=== PATIENT | female | born 1945 | race Caucasian/White ===

== ENCOUNTER 2018-04-09 09:24 | Observation (INO) | payer MEDICARE ==
[2018-04-09 10:00] LABS: #Eosinphils 0.1 thou/uL (0.0-0.7); #Lymphocytes 1.2 thou/uL (1.20-3.40); #Monocytes 1.1 thou/uL (0.11-0.59); #Neutrophils 12.1 thou/uL (1.40-6.50); %Basophils 0.2 % (0.0-1.0); %Eosinophils 0.6 % (0.0-10.0); %Lymphocytes 7.9 % (21.0-51.0); %Monocytes 7.6 % (0.0-10.0); %Neutrophils 83.7 % (42.0-75.0); Hemoglobin 14.7 g/dL (12.0-16.0); Mean Corpuscular HGB CONC 31.8 g/dL (32.0-36.0); Mean Platelet Volume 7.8 fL (7.4-10.4); Platelet Count 301 thou/uL (130-400); RBC Distribution Width 12.3 % (11.5-14.5); White Blood Cell (WBC) Count 14.5 thou/uL (4.8-10.8)
[2018-04-09] MEDS ORDERED: Mag-Al 1200 mg/1200 mg/30 ML UDCUP ONE (10:00)
[2018-04-09] MEDS ORDERED: Lidocaine Viscous Sol 2% 15 ml UD Cup ONE (10:00)
--- NOTE | 2018-04-09 10:07 | RAD ---
SINGLE VIEW CHEST: Date: 04/09/18 COMPARISON: 12/13/08. HISTORY: Mid sternal chest pain. FINDINGS: Single view of the chest shows normal sized cardiomediastinal silhouette. There is no evidence of con solidation, mass, or pleural effusion. Surgical changes are seen in both shoulders. IMPRESSION: No evidence of acute cardiopulmonary disease. POS: [facility]
[2018-04-09 10:14] LABS: ALT (SGPT) 26 U/L (8-55); AST (SGOT) 27 U/L (5-34); Albumin 4.8 g/dL (3.4-4.8); Alkaline Phosphatase 92 U/L (40-150); Anion Gap 13 mmol/L (10-20); BUN (Urea Nitrogen) 14 mg/dL (9.8-20.1); Bilirubin, Total 1.2 mg/dL (0.2-1.2); CK (CPK) 84 U/L (29-168); Calc. Creatinine Clearance 0 mL/min (70-130); Calcium 10.7 mg/dL (7.8-10.44); Carbon Dioxide 28 mmol/L (23-31); Chloride 99 mmol/L (98-107); Estimated GFR-MDRD 80; Globulin 3.2 g/dL (2.4-3.5); Glucose 134 mg/dL (83-110); Lipase 20 U/L (8-78); Sodium 136 mmol/L (136-145)
[2018-04-09] MEDS ORDERED: Morphine 2 MG/ML SYRINGE ONE (10:31)
[2018-04-09] MEDS ORDERED: Ondansetron PF 4 MG/2 ML Vial ONE (10:36)
[2018-04-09] MEDS ORDERED: Nitroglycerin 0.4 MG TAB (25 Tab Bottle) ONE (11:17)
[2018-04-09 14:01] LABS: Troponin I Less than 0.010 ng/mL (< 0.028)
[2018-04-09] MEDS ORDERED: Acetaminophen 325 MG TAB PO PRN (15:40)
[2018-04-09] MEDS ORDERED: Ondansetron PF 4 MG/2 ML Vial IVP PRN (15:40)
[2018-04-09] MEDS ORDERED: Ondansetron ODT 4 MG TAB SL PRN (15:40)
[2018-04-09 16:18] LABS: Troponin I Less than 0.010 ng/mL (< 0.028)
[2018-04-09] MEDS ORDERED: Sodium Chloride 0.9% 1,000 ML IV SCH (17:00)
[2018-04-09 17:09] VITALS: BMI 30.2
[2018-04-09] MEDS ORDERED: Calcium Carbonate 500 MG ChewTAB PO PRN (17:31)
[2018-04-09] MEDS: Sodium Chloride 0.9% 1,000 ML IV SCH (18:03)
[2018-04-09] MEDS ORDERED: SUMAtriptan Succinate 25 MG TAB PO SCH (19:00)
[2018-04-09] MEDS: Pantoprazole 40 MG VIAL IVP SCH (19:53)
--- NOTE | 2018-04-10 01:01 | HP ---
PRIMARY CARE PHYSICIAN: Dr. Anusha Brownlee. CODE STATUS: Full code. CHIEF COMPLAINT: Epigastric pain. HISTORY OF PRESENT ILLNESS: Ms. Preston is a pleasant 72-year-old female who had presented to [facility] with epigastric pain since yesterday, she states she has a past medical history of pancreatitis, hypertension, hyperlipidemia, asthma, and GERD. She states that the pain came on suddenly yesterday, which seems to be intermittent throughout the day that is worse with meals. She states when she was having the pain, she felt nauseous; however, denies any vomiting or diarrhea. She denies fever or chills. She states she did get mildly diaphoretic and dizzy; however, this lasted for just a few seconds and this resolved. Since then, she denies all those further symptoms. Upon coming to the ER, she was given a GI cocktail, which she states seemed to improve her symptoms. She states she usually takes Protonix once daily at home; however, has noticed a little improvement over the last 24 hours. She states she has taken her home medication of Phenergan, which seemed to improve her nausea. She also has taken her home dose of [place], which seemed to help with her pain. She states in the last two years, she had a normal stress test along with a normal EGD and colonoscopy. Her initial lab work showed a lipase of 20, she states that this pain that she is having feels more like her reflux more than a flare-up of her pancreatitis. Her initial troponins were found to be less than 0.010 x3. Her WBC was found to be elevated at 14.5; however, she denies any cough, shortness of breath, or any other symptoms that would represent an infectious cause. She states over the last two weeks, she was recently treated for sinusitis with an antibiotic; however, she could not tell me the name of this antibiotic. She states her symptoms of sinus pressure and drainage have since resolved. Due to the patient's symptoms, it was determined that she would be admitted overnight for observation and monitoring of her epigastric pain. PAST MEDICAL HISTORY: Hypertension, GERD, pancreatitis, asthma, and arthritis. PAST SURGICAL HISTORY: Back surgery back in 2013, right shoulder scope, left reverse shoulder replacement, left-sided jaw surgery, bilateral knee surgery, cholecystectomy, hysterectomy, and pancreatic duct surgery to relieve obstruction. PSYCHIATRIC HISTORY: Denies any psychiatric history at this time; however, does report taking alprazolam as needed for anxiety and amitriptyline 10 mg p.o. at bedtime as needed. SOCIAL HISTORY: Denies alcohol use, drug use, or tobacco use. FAMILY HISTORY: Not significant for heart disease at this time. KNOWN ALLERGIES: Colchicine, Lyrica, omeprazole, and ranitidine. CURRENT MEDICATIONS: 1. Promethazine 25 mg p.o. q.6 hours as needed for nausea. 2. Oxybutynin 15 mg p.o. daily p.r.n. 3. Nasonex 2 sprays each nostril daily. 4. Requip 1 mg p.o. at bedtime p.r.n. 5. Budesonide/formoterol 160/4.5 mcg two puffs inhalation b.i.d. 6. Hydrocodone/acetaminophen 10/325 mg p.o. b.i.d. p.r.n. pain. 7. Cyclobenzaprine 10 mg p.o. at bedtime p.r.n. muscle spasms. 8. Amitriptyline 10 mg p.o. at bedtime p.r.n. 9. Protonix 40 mg p.o. daily. 10. Zolpidem 10 mg p.o. at bedtime. 11. Montelukast 10 mg p.o. at bedtime. 12. Amlodipine 5 mg p.o. daily. 13. Restasis one drop each eye b.i.d. 14. Alprazolam 0.25 mg p.o. daily p.r.n. anxiety. REVIEW OF SYSTEMS: CONSTITUTIONAL: No fever, chills. No generalized weakness. No weight loss or weight gain. CARDIOVASCULAR: No chest pain. No palpitations. No murmur. RESPIRATORY: No cough, shortness of breath, wheezing, or sputum production. GASTROINTESTINAL: Does report epigastric pain since yesterday with some nausea; however, no vomiting or diarrhea. NEUROLOGIC: Denies dizziness, headache, or lightheadedness. GENITOURINARY: Denies any frequency, urgency, or dysuria. MUSCULOSKELETAL: Denies any pain or swelling in the extremities. Denies any weakness. PHYSICAL EXAMINATION: VITAL SIGNS: Blood pressure 130/62, pulse 72, temperature 98.8 degrees Fahrenheit, respirations 16, and O2 saturations 98% on room air. GENERAL: Alert and oriented x3. Mild acute distress noted due to epigastric pain. HEAD: Atraumatic and normocephalic. ENT: Pupils are round, reactive to light. Extraocular muscles intact. No scleral icterus. Oropharynx clear without any erythema. NECK: Supple. No bruit. No JVD noted. Full range of motion. CARDIOVASCULAR: Positive S1, S2. Regular rate and rhythm. No murmur noted. RESPIRATORY: Clear to auscultation bilaterally. No wheezes, no rhonchi. No rales. No coughing. ABDOMEN: Reproducible epigastric pain, no rebound, no rigidity noted. Bowel sounds present. No masses noted. MUSCULOSKELETAL: Moves all extremities equally. Strength 5+ bilaterally in upper and lower extremities. No edema noted. NEUROLOGICAL: Cranial nerves 2 through 12 intact. No focal deficits noted. Sensation intact. Gait is normal. Speech is normal. PSYCHIATRIC: Normal mood and affect. LABORATORY DATA: WBC 14.5, RBC 4.6, hemoglobin 14.7, and platelets 301. Sodium 136, potassium 4.0, anion gap 13, BUN 14, creatinine 0.71, estimated GFR 80, glucose 134. AST 27, ALT 26, and alkaline phosphatase 92. Creatine kinase 84. Troponin less than 0.010 x3. Lipase 20. DIAGNOSTIC IMAGING: Chest x-ray showed no evidence of acute cardiopulmonary disease. ASSESSMENT AND PLAN: 1. Epigastric pain, likely not pancreatitis as lipase is 20; however, we will recheck lipase in the morning. Continue the patient on IV fluids. Start IV Protonix twice daily. We will make the patient n.p.o. after midnight and monitor symptoms overnight, if pain still present in the morning, we will likely place consult to Gastroenterology Services for further evaluation. Considering recent gastrointestinal workup, this is likely secondary to her gastroesophageal reflux disease. Pain is more reproducible in her epigastric area; therefore, cardiac etiology not likely. Serial troponins negative x3. We will place the patient on regular home medications. 2. Hypertension. As above, continue the patient's home medications with further adjustments as needed. Start IV hydralazine as needed for systolic blood pressure greater than 170. Monitor vital signs closely. 3. Leukocytosis, likely reactive, the patient is not displaying any symptoms of an infectious process at this time other than her epigastric pain. We will check CBC in the morning with further adjustments pending her progress. 4. Gastrointestinal prophylaxis with IV Protonix twice daily, Zofran as needed for her nausea along with Tums as needed. 5. Deep venous thrombosis prophylaxis with sequential compression devices in place, we will recommend and encourage increased activity while in the hospital. Disposition and further medical management pending the patient's progress, we will treat her symptoms with medical management and conservative measures, we will monitor the patient overnight and re-evaluate in the morning, with recent negative cardiac workup and GI workup, she will likely be discharged in the next 24 to 48 hours with close outpatient followup with her PCP and/or halal butcher. Job ID: [id number]
[2018-04-10] MEDS: SUMAtriptan Succinate 25 MG TAB PO PRN ×2 (01:10→09:15)
[2018-04-10] MEDS: Sodium Chloride 0.9% 1,000 ML IV SCH ×3 (02:02→20:17)
[2018-04-10 06:05] LABS: #Eosinphils 0.1 thou/uL (0.0-0.7); #Lymphocytes 1.2 thou/uL (1.20-3.40); #Monocytes 0.8 thou/uL (0.11-0.59); #Neutrophils 4.8 thou/uL (1.40-6.50); %Basophils 0.6 % (0.0-1.0); %Eosinophils 1.4 % (0.0-10.0); %Lymphocytes 17.4 % (21.0-51.0); %Monocytes 11.9 % (0.0-10.0); %Neutrophils 68.6 % (42.0-75.0); Hemoglobin 12.7 g/dL (12.0-16.0); Mean Corpuscular HGB CONC 32.8 g/dL (32.0-36.0); Mean Corpuscular Hemoglobin 33.3 pg (27.0-31.0); Mean Platelet Volume 7.9 fL (7.4-10.4); Platelet Count 256 thou/uL (130-400); RBC Distribution Width 12.1 % (11.5-14.5)
[2018-04-10 06:30] LABS: ALT (SGPT) 18 U/L (8-55); AST (SGOT) 26 U/L (5-34); Albumin 3.3 g/dL (3.4-4.8); Alkaline Phosphatase 70 U/L (40-150); Anion Gap 13 mmol/L (10-20); BUN (Urea Nitrogen) 7 mg/dL (9.8-20.1); Bilirubin, Total 0.7 mg/dL (0.2-1.2); Calc. Creatinine Clearance 114 mL/min (70-130); Carbon Dioxide 21 mmol/L (23-31); Chloride 110 mmol/L (98-107); Estimated GFR-MDRD Greater than 90; Glucose 104 mg/dL (83-110); Lipase 18 U/L (8-78); Potassium 4.3 mmol/L (3.5-5.1); Protein, Total 6.3 g/dL (6.0-8.3); Sodium 140 mmol/L (136-145)
[2018-04-10] MEDS: Pantoprazole 40 MG VIAL IVP SCH (08:27)
[2018-04-10] MEDS ORDERED: Amitriptyline HCl 10 MG TAB PO PRN (10:01)
[2018-04-10] MEDS ORDERED: HYDROcodone/Acetaminophen 10/325 mg Tablet PO PRN (10:01)
[2018-04-10] MEDS ORDERED: rOPINIRole HCl 1 MG TAB PO PRN (10:01)
[2018-04-10] MEDS ORDERED: ALPRAZolam 0.25 MG TAB PO PRN (10:01)
[2018-04-10] MEDS ORDERED: Cyclobenzaprine 10 MG TAB PO PRN (10:01)
[2018-04-10] MEDS ORDERED: Promethazine 25 MG TAB PO PRN (10:01)
--- NOTE | 2018-04-10 15:37 | EKG ---
Test Reason : Blood Pressure : / mmHG Vent. Rate : 083 BPM Atrial Rate : 083 BPM P-R Int : 136 ms QRS Dur : 072 ms QT Int : 376 ms P-R-T Axes : 028 045 047 degrees QTc Int : 441 ms Normal sinus rhythm Normal ECG Confirmed by CHERELLE WARE ([id number]), art editor MICHAELA GONZALEZ ([id number]) on 04/10/2018 3:37:11 PM Referred By: Confirmed By:CHERELLE WARE
--- NOTE | 2018-04-10 15:54 | CON ---
DATE OF CONSULTATION: 04/10/2018 REASON: Epigastric pain. HISTORY: Ms. Preston is a 72-year-old female who has had chronic GE reflux disease for many years. Over the last two days, she has had increasing epigastric pain with radiation to the back. She has had increasing reflux symptoms since stopping her omeprazole 2 months ago because of diarrhea. She switched over to ranitidine, but stopped this because of headaches. She describes having indigestion and also regurgitation at night. Over the last few weeks, she has noted dysphagia characterized as food hanging up in her esophagus. She has had several bolus regurgitation. She denies any nausea or vomiting. There is no evidence of GI bleeding such as melena, hematochezia, rectal bleeding. She did have a history of some sort of pancreas problem 10 years ago and reportedly had a pancreatic stent placed at that time. She has not had any recurrent pancreatic problems since that time. Reportedly, she had unremarkable upper endoscopy and colonoscopy at [facility] 2 years ago. PAST MEDICAL HISTORY: 1. Hypertension. 2. Asthma. 3. Degenerative joint disease. 4. 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 5. Negative colonoscopy at [facility] 2 years ago. 6. Status post back surgery and shoulder surgery. 7. Knee surgery. 8. Status post cholecystectomy. 9. Status post hysterectomy. ALLERGIES: 1. OMEPRAZOLE CAUSED DIARRHEA. 2. RANITIDINE CAUSING HEADACHE. 3. COLCHICINE AND LYRICA. CURRENT MEDICATIONS: Include; 1. Oxybutynin. 2. Requip. 3. Tylenol No. 3. 4. Cyclobenzaprine. 5. Amitriptyline. 6. Montelukast. 7. Amlodipine. 8. Restasis. 9. Alprazolam. SOCIAL HISTORY: The patient has no tobacco or alcohol usage. FAMILY HISTORY: Negative for any known GI problem, liver disease, or GI malignancy. REVIEW OF SYSTEMS: A 10-point review of systems did not show any other pertinent positives or negatives. PHYSICAL EXAMINATION: VITAL SIGNS: Temperature is 98.4, blood pressure 133/66, and pulse of 73. GENERAL: She is alert, conversant, in no severe distress. HEENT: Exam shows anicteric sclerae. Oropharynx is clear. NECK: Supple. CV: Exam shows normal S1 and S2. Regular rate and rhythm. CHEST: Exam shows breath sound. ABDOMEN: Soft, essentially nontender to palpation without mass or organomegaly. She has good bowel sounds. No bruits. EXTREMITIES: Exam shows no edema. LABORATORY DATA: WBC 7.0, hemoglobin 12.7, and platelet count of 256. Electrolytes within normal range. Creatinine 0.6. Bilirubin 0.7, AST of 26, ALT of 18, alkaline phosphatase 70, and lipase of 18. ASSESSMENT: A 72-year-old woman with chronic gastroesophageal reflux, now with increasing symptoms since being off her proton pump inhibitor therapy. She also reports recent dysphagia to solid food. Her epigastric pain could be related to an acid related disorder rather than from any pancreatic disorder. RECOMMENDATIONS: 1. Proceed with diagnostic upper endoscopy with possible dilation. 2. If there is no finding to explain her pain on upper endoscopy, then we will proceed with CT to evaluate the pancreas. 3. Further recommendations to follow depending on above findings. Job ID: [id number]
--- NOTE | 2018-04-10 16:55 | PDOC.PN ---
- Subjective Encounter Start Date: 04/10/18 Encounter Start Time: 16:50 Pantient lying in bed with family at bedside. She continues to complain of epigastric pain, nausea. She denies chest pain or shortness of breath. She also has mild headache, no blurred vision. - Objective Resuscitation Status - Order Detail: 04/09/18 16:52 Resuscitation Status Routine Co-Sign Provider: Resuscitation Status: FULL: Full Resuscitation MAR Reviewed: Yes Vital Signs & Weight: Vital Signs (12 hours) Temp Pulse Resp BP Pulse Ox 04/10/18 15:20 98.2 F 75 16 136/65 96 04/10/18 11:38 98.4 F 73 20 133/66 97 04/10/18 07:22 98.4 F 65 16 139/63 96 Weight Weight 196 lb 14.4 oz I&O: 04/09/18 04/10/18 04/11/18 06:59 06:59 06:59 Intake Total 1911 Output Total 2100 Balance -189 Result Diagrams: 04/10/18 05:40 04/10/18 05:40 Radiology Reviewed by me: Yes Phys Exam - Physical Examination Constitutional: NAD HEENT: PERRLA, moist MMs, sclera anicteric, oral pharynx no lesions Neck: no nodes, no JVD, supple Respiratory: no wheezing, no rales, no rhonchi, clear to auscultation bilateral Cardiovascular: RRR, no significant murmur, no rub Gastrointestinal: soft, no distention, positive bowel sounds TTP in epigastric area Musculoskeletal: no edema, pulses present Neurological: non-focal, normal sensation, moves all 4 limbs Lymphatic: no nodes Psychiatric: normal affect, A&O x 3 Skin: no rash, normal turgor, cap refill <2 seconds Dx/Plan (1) Epigastric abdominal pain Code(s): R10.13 - EPIGASTRIC PAIN Status: Acute (2) Migraine Code(s): G43.909 - MIGRAINE, UNSP, NOT INTRACTABLE, WITHOUT STATUS MIGRAINOSUS Status: Acute (3) Hypertension Code(s): I10 - ESSENTIAL (PRIMARY) HYPERTENSION Status: Acute - Plan cont current plan of care * GI services Dr Niño following, plans for EGD today * Continue PPI BID * Continue home medications * Imitrex for migraine headache
[2018-04-10] MEDS: Mometasone/Formoterol 120 PUFF INHALER INH SCH (18:16)
[2018-04-10] MEDS ORDERED: Lidocaine 1% PF 5 ML VIAL ONE (18:17)
[2018-04-10] MEDS ORDERED: PROPOFOL 200 MG/20 ML VIAL ONE (18:17)
[2018-04-10] MEDS ORDERED: Promethazine HCl 25 MG/ML VIAL ONE (19:05)
[2018-04-10] MEDS ORDERED: Ondansetron PF 4 MG/2 ML Vial ONE (19:40)
[2018-04-10] MEDS ORDERED: Montelukast Sodium 10 mg Tablet PO SCH (21:00)
[2018-04-10] MEDS ORDERED: Zolpidem Tartrate 5 MG TAB PO SCH (21:00)
[2018-04-10] MEDS ORDERED: Non-Formulary Item 1 EACH (Budesonide-Formoterol [Symbicort 160-4.5] 2 PUFF) INH SCH (21:00)
[2018-04-10] MEDS: cycloSPORINE 0.05% Ophthalmic Droperette EA EYE SCH (21:02)
--- NOTE | 2018-04-11 02:58 | OP ---
DATE OF PROCEDURE: 04/10/2018 PROCEDURES PERFORMED: Esophagogastroduodenoscopy with balloon dilatation and Ren dilatation. PREMEDICATIONS: Given by Anesthesiology Department. PREPROCEDURE DIAGNOSES: 1. Epigastric pain. 2. Dysphagia. 3. Chronic gastroesophageal reflux disease. POSTPROCEDURE DIAGNOSES: 1. Moderate lower esophageal stricture at 38 cm from the incisors. 2. A 2 cm hiatal hernia. 3. Otherwise normal upper endoscopy. PROCEDURE IN DETAIL: Written consents were obtained prior to procedure. After adequate sedation, forward viewing endoscope was advanced down the stomach under direct vision to the second portion of duodenum. The duodenum and the bulb appeared normal. Pylorus was patent. The gastric antrum, body, fundus, and cardia all appeared normal. Retroflexion showed a 2 cm hiatal hernia. The Z-line was located approximately 39 cm from incisors. In the vicinity, there was a tight concentric stricture noted. There was no esophagitis or mucosal abnormalities seen. Dilatation was then performed using 15 to 18 mm balloon. Final dilation was performed up to 18 mm dilator times twice with 1-minute duration each. Final dilatations were performed using a 50-Polish Ren. There was disruption of the stricture. No bleeding was noted. The patient tolerated the procedure well without any complication. ASSESSMENT: 1. Lower esophageal stricture, moderately stenotic, status post balloon dilatation up to 18 mm and dilated with 50-Polish Ren. 2. A 2 cm hiatal hernia. 3. No other mucosal abnormality or esophagitis seen. RECOMMENDATION: 1. Continue pantoprazole 40 mg daily. 2. Would obtain a CT scan in a.m. as current endoscopic finding does not explain the patient's epigastric pain with radiation to the back. Job ID: [id number]
[2018-04-11] MEDS: SUMAtriptan Succinate 25 MG TAB PO PRN (03:16)
[2018-04-11] MEDS: Sodium Chloride 0.9% 1,000 ML IV SCH ×2 (04:08→13:39)
[2018-04-11] MEDS: Mometasone/Formoterol 120 PUFF INHALER INH SCH (06:42)
[2018-04-11] MEDS ORDERED: Amlodipine 5 MG TAB PO SCH (09:00)
[2018-04-11] MEDS ORDERED: Oxybutynin ER 5 MG TAB PO PRN (09:00)
--- NOTE | 2018-04-11 11:01 | CT ---
CT ABDOMEN AND PELVIS WITH CONTRAST: Comparison: 04-20-13 History: Epigastric abdominal pain. Esophageal stricture. History of hiatal hernia repair. Technique: Multiple contiguous axial images were obtained in a CT of the abdomen and pelvis with cont rast. PO contrast was administered. Coronal reformats were performed. FINDINGS: The patient is status post cholecystectomy. There is stable air in the biliary tree which is likely f rom a sphincterotomy at the ampulla of vater. No focal liver lesions are seen. The kidneys, adrenal g lands, spleen, and pancreas are unremarkable. No free air, free fluid, or stranding changes are seen in the abdomen or pelvis. There are scattered diverticula in the left colon. The small bowel is unremarkable. The patient is status post hysterecto my. No abdominal or pelvic lymphadenopathy are seen. No suspicious gastric abnormality is seen. There is a prominent fold in the posterior stomach near the gastroesophageal junction which may represent post-surgical change. Degenerative changes are seen in the spine. The visualized inferior thorax and abdominal wall soft ti ssues are unremarkable. IMPRESSION: 1. No evidence of acute intraabdominal/pelvic abnormality. 2. Diverticulosis. POS: [facility]
[2018-04-11 11:56] VITALS: BP 139/71; TEMP 98.4
[2018-04-11] MEDS: cycloSPORINE 0.05% Ophthalmic Droperette EA EYE SCH (12:29)
--- NOTE | 2018-04-11 13:56 | PRG ---
DATE OF SERVICE: 04/11/2018 SUBJECTIVE: The patient feels well and reports resolution of the epigastric pain. There is no nausea or vomiting. There is no regurgitation or heartburn. OBJECTIVE: VITAL SIGNS: Temperature is 98.4, blood pressure 139/71, and pulse of 74. GENERAL: She is alert, sitting up, in no distress. HEENT: Shows anicteric sclerae. Oropharynx is clear. NECK: Supple. CV: Shows normal S1 and S2. Regular rate and rhythm. CHEST: Shows regular breath sounds. ABDOMEN: Soft, mildly protuberant, and nontender. Good bowel sounds. EXTREMITIES: Shows no edema. LABORATORY DATA: No new labs. DIAGNOSTIC DATA: Abdominal and pelvic CT with contrast was essentially normal, specifically pancreas appeared normal. ASSESSMENT: 1. Epigastric pain, likely related to overall uncontrolled gastroesophageal reflux disease and hiatal hernia, resolved. 2. Dysphagia from distal esophageal stricture, status post balloon dilatation up to 18 mm. 3. Chronic gastroesophageal reflux disease with a 2 cm hiatal hernia. RECOMMENDATIONS: 1. The patient can be discharged to home. I have advised her on a soft moist diet for now. 2. Pantoprazole 40 mg p.o. b.i.d. 3. The patient will follow up with me in one month, we will decrease the dose of PPI if she continues to do well. Job ID: [id number]
--- NOTE | 2018-04-12 12:29 | DIS ---
DATE OF ADMISSION: 04/09/2018 DATE OF DISCHARGE: 04/11/2018 CONSULTATIONS: Gastroenterology, Dr. Niño. PROCEDURES: EGD with balloon dilation and Ren dilatation. DISCHARGE DIAGNOSES: 1. Chronic gastroesophageal reflux disease. 2. Moderate lower esophageal stricture. 3. Hiatal hernia. 4. Epigastric pain, resolved, likely secondary to above. 5. Hypertension, stable. LABORATORY DATA: WBC 7.0, RBC 3.8, hemoglobin 12.7, and platelets 256. Sodium 140, potassium 4.3, creatinine 0.61, estimated GFR greater than 90, glucose 104, AST 26, ALT 18. Troponin less than 0.010 x3. Lipase 18. DIAGNOSTIC IMAGING: Chest x-ray showed no evidence of acute cardiopulmonary disease. CT of the abdomen showed no evidence of acute intraabdominal/pelvic abnormality and it did display diverticulosis. HOSPITAL COURSE: Ms. Preston is a pleasant 72-year-old female, who had presented to [facility] with complaints of epigastric pain that had been going on for 1 to 2 days prior to admission. She had a past medical history of GERD, hypertension, pancreatitis and hyperlipidemia along with asthma. Her pain was reproducible on exam. In the ER, troponin was obtained and it was less than 0.010 x3. Chest x-ray showed no acute cardiopulmonary abnormality. She was then admitted under observation for further evaluation and workup of symptoms. Gastroenterology Services, Dr. Niño, was consulted due to her symptoms of epigastric pain along with dysphagia. The patient was kept on IV PPI including Protonix twice daily throughout her hospital course. She was also started on sumatriptan for history of migraine headaches, this seemed to resolve her headaches during hospital course. She was taken to the operating room for EGD with Dr. Niño on 04/10/2018, there was a lower esophageal stricture noted with moderately stenotic presentation, a balloon dilatation was then performed with Ren procedure, a 2-cm hiatal hernia was also noted. No other mucosal abnormality or esophagitis was seen. Dr. Niño did recommend the patient continue on omeprazole and also recommended further evaluation of her epigastric pain with CT scan. She underwent a CT on 04/11/2018, which was essentially unremarkable and showed no acute evidence of acute intra-abdominal/pelvic abnormality; however, did display chronic diverticulosis without any diverticulitis. The patient's symptoms of epigastric pain resolved status post EGD with dilation of her esophageal stricture. IV Protonix was then transitioned to oral equivalent [address] Niño came and evaluated the patient and the patient was started on soft diet and tolerated well. He had determined that no further workup needed at that time and determined the patient would follow up with him in his office in 1 month. The patient was seen and examined by Hospitalist Team with several family members at bedside, she had denied any further chest pain, shortness of breath, or abdominal pain at that time. She had no nausea, vomiting. Heart sounds were normal along with clear lung sounds. Her abdomen was soft, nontender. Bowel sounds were present. She was tolerating a diet at that time and was deemed medically stable for discharge home on 04/11/2018. DISCHARGE MEDICATIONS: 1. Sumatriptan 25 mg oral every 6 hours as needed for headache. 2. Protonix 40 mg oral b.i.d., this was a change from her normal daily dose. 3. Requip 1 mg oral at bedtime as needed for restlessness. 4. Promethazine 25 mg oral every 6 hours as needed for nausea. 5. Oxybutynin 50 mg oral daily as needed for incontinence. 6. Nasonex 2 sprays each nostril daily. 7. Budesonide/formoterol two puff inhalation twice daily. 8. Hydrocodone/acetaminophen one tab oral twice daily as needed for pain. 9. Cyclobenzaprine 10 mg oral at bedtime as needed for muscle spasm. 10. Amitriptyline 10 mg p.o. at bedtime as needed for anxiety and insomnia. 11. Zolpidem tartrate 10 mg oral at bedtime. 12. Montelukast 10 mg oral at bedtime. 13. Amlodipine 5 mg oral daily. 14. Restasis one drop each eye twice daily. 15. Alprazolam 0.25 mg oral daily as needed for anxiety. FOLLOWUP: The patient was instructed to follow up with her primary care physician, Dr. Anusha Brownlee, in 1 to 2 weeks, she was also instructed to follow up with Dr. Niño, Air[employer] Technician, in one month. CONDITION ON DISCHARGE: Stable. ACTIVITY: As tolerated. DIET: Regular diet. CODE STATUS: FULL CODE. DISPOSITION: Home on 04/11/2018. Job ID: [id number]
== END 2018-04-11 16:15 | disposition home or self-care (01) ==
LOC: ERS 09:24 → 2SW 12:44
PROVIDERS: ADMIT Family Medicine; ATTEND Family Medicine
PROC: 0D758ZZ Dilation of Esophagus, Via Natural or Artificial Opening Endoscopic (ICD-10-PCS; principal; 2018-04-09)
DX: K22.2 Esophageal obstruction (principal); K44.9 Diaphragmatic hernia without obstruction or gangrene; K21.9 Gastro-esophageal reflux disease without esophagitis; I10 Essential (primary) hypertension; E78.5 Hyperlipidemia, unspecified; J45.909 Unspecified asthma, uncomplicated; M19.90 Unspecified osteoarthritis, unspecified site; D72.829 Elevated white blood cell count, unspecified; G43.909 Migraine, unspecified, not intractable, without status migrainosus; Z79.899 Other long term (current) drug therapy; Z88.8 Allergy status to other drugs, medicaments and biological substances
CPT/HCPCS: 43249; 71045; 74177; 80053 ×2; 82550; 83690 ×2; 84484 ×2; 85025 ×2; 93005; 94640 ×2; 96361 ×3; 96374; 96375 ×2; 96376; 99285; G0378 ×2; 36415; C9113; J2001; J2270; J2405; J2550; J2704

== ENCOUNTER 2018-12-11 13:30 | Outpatient (CLI) | payer MEDICARE ==
[2018-12-11 14:30] LABS: Estimated GFR-MDRD - POC Greater than 90
--- NOTE | 2018-12-11 15:58 | MRI ---
MRI ABDOMEN WITH AND WITHOUT IV CONTRAST: HISTORY: Epigastric pain, nausea and vomiting, diarrhea. FINDINGS: The patient is post cholecystectomy. No abnormal biliary ductal dilatation or pancreatic ductal dila tation is seen. There is a wedge-shaped 3.7 cm focal area of hyperenhancement in the left lobe of the liver extending into the anterior capsule. There is probable mild T2 hyperintensity in this region. The spleen, pancreas, adrenal glands, and kidneys are normal. No free fluid or lymphadenopathy see n in the abdomen. There is no evidence of aneurysmal dilatation of the abdominal aorta. The bone ma rrow signal is normal. There are degenerative changes in the spine. The small bowel loops are not a bnormally dilated. There is colonic diverticulosis. IMPRESSION: Wedge-shaped area of hyperenhancement in the left lobe of the liver. Vascular variant versus mass. A followup exam is recommended in 3 months. POS: [facility]
== END 2018-12-11 13:31 | disposition home or self-care (01) ==
LOC: MRI 13:30
PROVIDERS: ATTEND Physician Assistant Medical
DX: R10.13 Epigastric pain (principal); R11.2 Nausea with vomiting, unspecified; R19.7 Diarrhea, unspecified; K76.89 Other specified diseases of liver
CPT/HCPCS: 74183; 82565

== ENCOUNTER 2019-03-16 12:52 | Inpatient (IN) | payer MEDICARE ==
--- NOTE | 2019-03-16 13:24 | CT ---
CT BRAIN NONCONTRAST: DATE: 03/16/2019 HISTORY: 73-year-old female status post acute head trauma from fall FINDINGS: There is no evidence of acute intra-axial or extra-axial hemorrhage. There is no midline shift or any other mass effect. There is no extra-axial fluid collection. There is no evidence of obstructive hydrocephalus. Calvarium is intact. IMPRESSION: No acute intracranial findings.
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
[2019-03-16 13:49] LABS: #Eosinphils 0.1 thou/uL (0.0-0.7); #Lymphocytes 1.5 thou/uL (1.20-3.40); #Monocytes 0.7 thou/uL (0.11-0.59); #Neutrophils 6.3 thou/uL (1.40-6.50); %Basophils 0.1 % (0.0-1.0); %Eosinophils 1.6 % (0.0-10.0); %Lymphocytes 17.7 % (21.0-51.0); %Monocytes 7.6 % (0.0-10.0); Hemoglobin 13.8 g/dL (12.0-16.0); Mean Corpuscular HGB CONC 32.7 g/dL (32.0-36.0); Mean Corpuscular Hemoglobin 32.2 pg (27.0-31.0); Mean Corpuscular Volume 98.4 fL (78.0-98.0); Mean Platelet Volume 7.8 fL (7.4-10.4); Platelet Count 265 thou/uL (130-400); RBC Distribution Width 11.6 % (11.5-14.5); Red Blood Cell (RBC) Count 4.29 mill/uL (4.20-5.40); White Blood Cell (WBC) Count 8.6 thou/uL (4.8-10.8)
[2019-03-16 14:16] LABS: ALT (SGPT) 18 U/L (8-55); AST (SGOT) 19 U/L (5-34); Albumin 4.2 g/dL (3.4-4.8); Alkaline Phosphatase 78 U/L (40-110); Anion Gap 15 mmol/L (10-20); BUN (Urea Nitrogen) 15 mg/dL (9.8-20.1); Bilirubin, Total 0.5 mg/dL (0.2-1.2); CK (CPK) 58 U/L (29-168); Calc. Creatinine Clearance 0 mL/min (70-130); Calcium 9.2 mg/dL (7.8-10.44); Carbon Dioxide 24 mmol/L (23-31); Chloride 106 mmol/L (98-107); Estimated GFR-MDRD 78; Globulin 3.1 g/dL (2.4-3.5); Glucose 99 mg/dL (83-110); Potassium 3.8 mmol/L (3.5-5.1); Protein, Total 7.3 g/dL (6.0-8.3); Sodium 141 mmol/L (136-145)
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
[2019-03-16] MEDS ORDERED: HumaLOG 300 UNITS/3 ML VIAL SC PRN (17:12)
[2019-03-16] MEDS ORDERED: Ondansetron PF 4 MG/2 ML Vial IVP PRN (17:12)
[2019-03-16] MEDS ORDERED: hydrALAZINE 20 MG/ML VIAL SLOW IVP PRN (17:12)
[2019-03-16] MEDS ORDERED: Dextrose 50% Abboject 50 ML SYRINGE SLOW IVP PRN (17:12)
[2019-03-16] MEDS ORDERED: Promethazine HCl 25 MG/ML VIAL IM PRN (17:12)
[2019-03-16] MEDS ORDERED: Dextrose 5% in Water 1,000 ML IV PRN (17:12)
[2019-03-16] MEDS ORDERED: Sodium Chloride 0.9% 1,000 ML IV SCH (17:15)
[2019-03-16] MEDS ORDERED: traMADol HCl 50 MG TAB PO PRN (17:16)
[2019-03-16] MEDS ORDERED: Oxybutynin 5 MG TAB PO PRN (17:55)
[2019-03-16] MEDS ORDERED: rOPINIRole HCl 1 MG TAB PO PRN (17:55)
[2019-03-16 18:36] LABS: INR-International Normal Ratio 0.9; PTT 30.3 SEC (22.9-36.1); Prothrombin Time 12.6 SEC (12.0-14.7)
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
[2019-03-16] MEDS: Sodium Chloride 0.9% 1,000 ML IV SCH (19:45)
[2019-03-16 20:09] VITALS: BMI 31.1
[2019-03-16] MEDS: Acetaminophen 500 MG TAB PO PRN (20:46)
[2019-03-16] MEDS: Senokot S 8.6-50 MG TAB PO SCH (20:57)
[2019-03-16] MEDS: Montelukast Sodium 10 mg Tablet PO SCH (20:57)
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
[2019-03-16] MEDS ORDERED: Amitriptyline HCl 10 MG TAB PO PRN (21:26)
[2019-03-16] MEDS ORDERED: Cyclobenzaprine 10 MG TAB PO PRN (21:26)
[2019-03-16] MEDS ORDERED: PROVENTIL INHALER 6.7 G (200 INHALATIONS) INH SCH (21:30)
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
[2019-03-17] MEDS: Acetaminophen 500 MG TAB PO PRN ×2 (04:31→13:13)
[2019-03-17] MEDS: Sodium Chloride 0.9% 1,000 ML IV SCH ×3 (04:53→22:35)
[2019-03-17] MEDS: Mometasone/Formoterol 120 PUFF INHALER INH SCH ×2 (07:05→18:05)
[2019-03-17] MEDS ORDERED: PROVENTIL INHALER 6.7 G (200 INHALATIONS) INH PRN (08:06)
[2019-03-17] MEDS ORDERED: Prevnar 13-Val Conj/PF 0.5 ML SYRINGE IM ONE (09:00)
[2019-03-17] MEDS: Senokot S 8.6-50 MG TAB PO SCH ×2 (09:06→20:15)
[2019-03-17] MEDS: Amlodipine 5 MG TAB PO SCH (09:06)
[2019-03-17] MEDS: Polyethylene Glycol 3350 17 GM Packet PO SCH (09:07)
[2019-03-17] MEDS: cycloSPORINE 0.05% Ophthalmic Droperette EA EYE SCH ×2 (09:39→20:07)
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
[2019-03-17] MEDS: Montelukast Sodium 10 mg Tablet PO SCH (20:13)
--- NOTE | 2019-03-17 23:12 | PRG ---
DATE OF SERVICE: 03/17/2019 SUBJECTIVE: The patient was seen on the surgical floor this evening. The patient is awake, alert, sitting up in bed. 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 The patient continues to tolerate a regular diet. The patient was able to walk with physical therapy today. The patient voices also that her head and neck pain has improved. PLAN: The patient will most likely be discharged home tomorrow as the patient does not want to go to inpatient rehab. We will continue supportive care and have Physical Therapy and Occupational Therapy work with the patient tomorrow before discharge. Job ID: [id number]
[2019-03-18] MEDS: Mometasone/Formoterol 120 PUFF INHALER INH SCH (06:48)
[2019-03-18] MEDS: Amlodipine 5 MG TAB PO SCH (08:32)
[2019-03-18 08:33] VITALS: BP 153/84; TEMP 98.1
[2019-03-18] MEDS: cycloSPORINE 0.05% Ophthalmic Droperette EA EYE SCH (08:33)
[2019-03-18] MEDS: Polyethylene Glycol 3350 17 GM Packet PO SCH (08:33)
[2019-03-18] MEDS: Senokot S 8.6-50 MG TAB PO SCH (08:33)
[2019-03-18] MEDS ORDERED: Enoxaparin Sodium 40 MG/0.4 ML SYRINGE SC SCH (09:00)
[2019-03-18] MEDS: Acetaminophen 500 MG TAB PO PRN (10:17)
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
== END 2019-03-18 14:26 | disposition home health service (06) | DRG 52 ==
LOC: ERS 12:52 → IMCU/EMU 19:32 → SURG A 03-17 11:03
PROVIDERS: ADMIT Specialist; ATTEND Specialist
DX: S14.126A Central cord syndrome at C6 level of cervical spinal cord, initial encounter (principal); G82.54 Quadriplegia, C5-C7 incomplete; S06.0X9A Concussion with loss of consciousness of unspecified duration, initial encounter; I10 Essential (primary) hypertension; J45.909 Unspecified asthma, uncomplicated; M48.02 Spinal stenosis, cervical region; R40.2362 Coma scale, best motor response, obeys commands, at arrival to emergency department; R40.2142 Coma scale, eyes open, spontaneous, at arrival to emergency department; R40.2252 Coma scale, best verbal response, oriented, at arrival to emergency department; Y00.XXXA Assault by blunt object, initial encounter; Y92.129 Unspecified place in nursing home as the place of occurrence of the external cause; Z79.899 Other long term (current) drug therapy; Z79.51 Long term (current) use of inhaled steroids
CPT/HCPCS: 36415; 36416; 70450; 72125; 72128; 72131; 72141; 80053; 82550; 84484; 85025; 85610; 85730; 93005; 96360; 96361; G0390; J1650; L0120

== ENCOUNTER 2019-04-03 13:20 | Outpatient (CLI) | payer MEDICARE ==
--- NOTE | 2019-04-03 14:02 | RAD ---
CERVICAL SPINE FOUR VIEWS: 04/03/2019 HISTORY: Stenosis. Fall. COMPARISON: None available. FINDINGS: There is mild degenerative change at the atlantoaxial interspace. There is disk space narrowing with degenerative endplate change and anterior osteophyte formation at C5-C6 and C6-C7. Swimmer's lateral view is limited secondary to obscuration from a shoulder arthroplasty. The neutral lateral imaging de monstrates no significant anterolisthesis or retrolisthesis. Upon flexion there is minimal anterolist hesis, measuring approximately 2 mm at C2-C3, C4-C5 and C5-C6. No anterolisthesis or retrolisthesis i s seen on extension imaging. IMPRESSION: Cervical spine degenerative change with mild multilevel anterolisthesis upon flexion. POS: CORBIN
== END 2019-04-03 13:21 | disposition home or self-care (01) ==
LOC: TBSIIMAG 13:20
PROVIDERS: ATTEND Neurological Surgery
DX: M48.02 Spinal stenosis, cervical region (principal); M47.812 Spondylosis without myelopathy or radiculopathy, cervical region; M43.12 Spondylolisthesis, cervical region
CPT/HCPCS: 72040

== ENCOUNTER 2020-09-17 11:48 | Inpatient (IN) | payer MEDICARE ==
[2020-09-17 12:55] LABS: #Eosinphils 0.1 thou/uL (0.0-0.7); #Lymphocytes 1.1 thou/uL (1.20-3.40); #Monocytes 0.8 thou/uL (0.11-0.59); #Neutrophils 9.9 thou/uL (1.40-6.50); %Basophils 0.3 % (0.0-1.0); %Eosinophils 0.6 % (0.0-10.0); %Lymphocytes 9.1 % (21.0-51.0); %Monocytes 6.7 % (0.0-10.0); %Neutrophils 83.2 % (42.0-75.0); Hemoglobin 13.6 g/dL (12.0-16.0); Mean Corpuscular HGB CONC 33.6 g/dL (32.0-36.0); Mean Corpuscular Hemoglobin 33.1 pg (27.0-31.0); Mean Corpuscular Volume 98.5 fL (78.0-98.0); Mean Platelet Volume 7.6 fL (7.4-10.4); Platelet Count 267 thou/uL (130-400); RBC Distribution Width 11.6 % (11.5-14.5); Red Blood Cell (RBC) Count 4.12 mill/uL (4.20-5.40); White Blood Cell (WBC) Count 11.9 thou/uL (4.8-10.8)
[2020-09-17 13:16] LABS: ALT (SGPT) 19 U/L (8-55); AST (SGOT) 19 U/L (5-34); Alkaline Phosphatase 89 U/L (40-110); Anion Gap 12 mmol/L (10-20); BUN (Urea Nitrogen) 17 mg/dL (9.8-20.1); Bilirubin, Total 0.5 mg/dL (0.2-1.2); Calc. Creatinine Clearance 0 mL/min (70-130); Calcium 9.2 mg/dL (7.8-10.44); Carbon Dioxide 26 mmol/L (23-31); Chloride 103 mmol/L (98-107); Globulin 3.3 g/dL (2.4-3.5); Glucose 134 mg/dL (83-110); Lipase 29 U/L (8-78); Potassium 4.1 mmol/L (3.5-5.1); Protein, Total 7.3 g/dL (5.8-8.1); Sodium 137 mmol/L (136-145)
[2020-09-17] MEDS ORDERED: Morphine 4 MG/ML VIAL ONE ×2 (14:29→20:28)
[2020-09-17] MEDS ORDERED: Ondansetron PF 4 MG/2 ML Vial ONE (14:30)
[2020-09-17] MEDS ORDERED: Ondansetron PF 4 MG/2 ML Vial IVP PRN (14:39)
[2020-09-17] MEDS ORDERED: Ondansetron ODT 4 MG TAB PO PRN (14:39)
[2020-09-17] MEDS ORDERED: Acetaminophen 650 MG Suppository PR PRN (14:39)
[2020-09-17] MEDS ORDERED: Sodium Chloride 0.9% 1,000 ML IV SCH (14:45)
[2020-09-17] MEDS ORDERED: Morphine 2 MG/ML VIAL SLOW IVP PRN (14:50)
[2020-09-17 17:19] LABS: Troponin I Less than 0.010 ng/mL (< 0.028)
[2020-09-17] MEDS ORDERED: Cyclobenzaprine 10 MG TAB PO PRN (18:00)
[2020-09-17] MEDS ORDERED: Amitriptyline HCl 10 MG TAB PO PRN (18:00)
[2020-09-17] MEDS ORDERED: Oxybutynin 5 MG TAB PO PRN (18:05)
[2020-09-17] MEDS ORDERED: Albuterol Sulfate 2.5 mg/3 ml Neb NEB PRN (18:07)
[2020-09-17 19:20] LABS: Troponin I Less than 0.010 ng/mL (< 0.028)
[2020-09-17 19:35] VITALS: BMI 32.3
[2020-09-17] MEDS: Mometasone 200 MCG/Formoterol 5 MCG 120 PUFF INHALER INH SCH (19:48)
[2020-09-17] MEDS: Montelukast Sodium 10 mg Tablet PO SCH (20:40)
[2020-09-17] MEDS: Morphine 4 MG/ML VIAL SLOW IVP PRN (20:46)
[2020-09-18] MEDS: traMADol HCl 50 MG TAB PO PRN ×2 (00:06→06:28)
[2020-09-18 00:45] LABS: SARS-CoV-2 PCR by NAA Not Detected (NotDetected)
[2020-09-18] MEDS: Morphine 4 MG/ML VIAL SLOW IVP PRN ×3 (05:02→16:56)
[2020-09-18 05:25] LABS: #Basophils 0.1 thou/uL (0.0-0.2); #Eosinphils 0.1 thou/uL (0.0-0.7); #Lymphocytes 1.6 thou/uL (1.20-3.40); #Monocytes 0.9 thou/uL (0.11-0.59); #Neutrophils 8.4 thou/uL (1.40-6.50); %Basophils 0.6 % (0.0-1.0); %Lymphocytes 14.8 % (21.0-51.0); %Monocytes 7.8 % (0.0-10.0); %Neutrophils 75.8 % (42.0-75.0); Hemoglobin 12.6 g/dL (12.0-16.0); Mean Corpuscular HGB CONC 33.4 g/dL (32.0-36.0); Mean Corpuscular Volume 98.8 fL (78.0-98.0); Platelet Count 242 thou/uL (130-400); RBC Distribution Width 11.7 % (11.5-14.5); Red Blood Cell (RBC) Count 3.81 mill/uL (4.20-5.40)
[2020-09-18 05:45] LABS: Anion Gap 13 mmol/L (10-20); BUN (Urea Nitrogen) 11 mg/dL (9.8-20.1); Calc. Creatinine Clearance 107 mL/min (70-130); Calcium 8.7 mg/dL (7.8-10.44); Carbon Dioxide 24 mmol/L (23-31); Cardiac Risk 2.4 (Less than 4.5); Chloride 105 mmol/L (98-107); Cholesterol 166 mg/dl (< 200 Desired); Glucose 117 mg/dL (83-110); HDL Cholesterol 70 mg/dL (>60 Neg Risk); LDL Cholesterol, Calculated 84 mg/dL; Potassium 4.1 mmol/L (3.5-5.1); Sodium 138 mmol/L (136-145); Triglycerides 59 mg/dL (Less than 150)
[2020-09-18 05:48] LABS: Troponin I Less than 0.010 ng/mL (< 0.028)
[2020-09-18] MEDS: Aspirin Chewable 81 MG TAB PO SCH (06:29)
[2020-09-18] MEDS: Mometasone 200 MCG/Formoterol 5 MCG 120 PUFF INHALER INH SCH ×2 (06:55→18:28)
[2020-09-18] MEDS: Acetaminophen 325 MG TAB PO PRN ×2 (08:08→21:27)
[2020-09-18] MEDS ORDERED: Regadenoson 0.4 MG/5 ML SYRINGE ONE (12:25)
[2020-09-18] MEDS ORDERED: Iopamidol-370 76% 500 ML 1 ML ONE (12:58)
[2020-09-18] MEDS: Montelukast Sodium 10 mg Tablet PO SCH (21:11)
[2020-09-19] MEDS ORDERED: Bisacodyl 5 MG TAB PO PRN (04:29)
[2020-09-19] MEDS: Morphine 4 MG/ML VIAL SLOW IVP PRN (07:12)
[2020-09-19] MEDS: Mometasone 200 MCG/Formoterol 5 MCG 120 PUFF INHALER INH SCH ×3 (07:30→19:04)
[2020-09-19] MEDS: Aspirin Chewable 81 MG TAB PO SCH (07:36)
[2020-09-19] MEDS ORDERED: Promethazine HCl 12.5 MG in Sodium Chloride 0.9% 50 ML IVPB PRN (16:07)
[2020-09-19] MEDS: Montelukast Sodium 10 mg Tablet PO SCH (21:58)
[2020-09-20] MEDS ORDERED: Communication Order-Pharmacy FS SCH (00:45)
[2020-09-20] MEDS ORDERED: Promethazine 25 MG TAB PO SCH (00:45)
[2020-09-20] MEDS: Sodium Chloride 0.9% 1,000 ML IV SCH ×3 (02:40→10:59)
[2020-09-20] MEDS: Aspirin Chewable 81 MG TAB PO SCH (06:07)
[2020-09-20] MEDS: Mometasone 200 MCG/Formoterol 5 MCG 120 PUFF INHALER INH SCH (06:51)
[2020-09-20] MEDS: Morphine 4 MG/ML VIAL SLOW IVP PRN (08:43)
[2020-09-20] MEDS ORDERED: Lidocaine 1% (PF) 30 ML VIAL ONE (10:51)
[2020-09-20] MEDS ORDERED: Fentanyl 100 MCG/2 ML VIAL ONE (11:23)
[2020-09-20] MEDS ORDERED: Midazolam HCl 2 mg/2 ml Vial ONE (11:24)
[2020-09-20] MEDS ORDERED: Nitroglycerin 100MG/250ML BOT 250 ML ONE (11:37)
[2020-09-20] MEDS ORDERED: Heparin 10,000 UNITS/ 10 ML VIAL ONE (11:37)
[2020-09-20] MEDS ORDERED: Verapamil 5 MG/2 ML VIAL ONE (11:37)
[2020-09-20] MEDS ORDERED: Promethazine HCl 25 MG/ML VIAL ONE ×2 (11:47→12:11)
[2020-09-20] MEDS ORDERED: Nitroglycerin 0.4 MG TAB (25 Tab Bottle) SL PRN (12:04)
[2020-09-20] MEDS ORDERED: Acetaminophen/Codeine 30-300mg Tablet PO PRN (12:04)
[2020-09-20] MEDS ORDERED: Sodium Chloride 0.9% 200 ML IV PRN (12:04)
[2020-09-20 15:25] VITALS: BP 138/76; TEMP 98.2
== END 2020-09-20 17:29 | disposition home or self-care (01) | DRG 287 ==
LOC: ERS 11:48 → 2SW 13:54 → OBSVTOIN 09-19 13:08
PROVIDERS: ADMIT Internal Medicine; ATTEND Internal Medicine
PROC: 4A023N7 Measurement of Cardiac Sampling and Pressure, Left Heart, Percutaneous Approach (ICD-10-PCS; principal; 2020-09-20)
PROC: B2111ZZ Fluoroscopy of Multiple Coronary Arteries using Low Osmolar Contrast (ICD-10-PCS; 2020-09-20)
DX: R07.9 Chest pain, unspecified (principal); I10 Essential (primary) hypertension; E78.5 Hyperlipidemia, unspecified; G89.4 Chronic pain syndrome; J45.30 Mild persistent asthma, uncomplicated; E66.9 Obesity, unspecified; I25.10 Atherosclerotic heart disease of native coronary artery without angina pectoris; K21.9 Gastro-esophageal reflux disease without esophagitis; Z20.822 Contact with and (suspected) exposure to COVID-19; Z88.8 Allergy status to other drugs, medicaments and biological substances; Z79.899 Other long term (current) drug therapy; Z98.890 Other specified postprocedural states; Z68.32 Body mass index [BMI] 32.0-32.9, adult
CPT/HCPCS: 36415; 71045; 71275; 78452; 80048; 80053; 80061; 83690; 84484; 85025; 85379; 87635; 93005; 93010; 93017; 93306; 93454; 94760; 96374; 96375; 96376; 99152; A9500; G0378; J1644; J2001; J2250; J2270; J2405; J2550; J2785; J3010; Q9967; U0003; U0005

== ENCOUNTER 2022-07-20 21:23 | Observation (INO) | payer MEDICARE ==
[2022-07-20 22:28] LABS: #Eosinphils 0.1 thou/uL (0.0-0.7); #Lymphocytes 1.4 thou/uL (1.20-3.40); #Monocytes 0.6 thou/uL (0.11-0.59); #Neutrophils 4.1 thou/uL (1.40-6.50); %Basophils 0.7 % (0.0-1.0); %Lymphocytes 22.1 % (21.0-51.0); %Monocytes 8.9 % (0.0-10.0); %Neutrophils 66.4 % (42.0-75.0); Hemoglobin 12.1 g/dL (12.0-16.0); Mean Corpuscular HGB CONC 32.2 g/dL (32.0-36.0); Mean Corpuscular Hemoglobin 31.5 pg (27.0-31.0); Mean Corpuscular Volume 97.9 fl (78.0-98.0); Mean Platelet Volume 8.1 fL (7.4-10.4); Platelet Count 221 10x3/uL (130-400); RBC Distribution Width 12.3 % (11.5-14.5); Red Blood Cell (RBC) Count 3.84 mill/uL (4.20-5.40); White Blood Cell (WBC) Count 6.2 10x3/uL (4.8-10.8)
[2022-07-20] MEDS ORDERED: Nitroglycerin 0.4 MG TAB 1 EACH ONE (22:31)
[2022-07-20] MEDS ORDERED: Aspirin Chewable 81 MG TAB ONE (22:31)
[2022-07-20 22:46] LABS: ALT (SGPT) 22 U/L (8-55); AST (SGOT) 28 U/L (5-34); Alkaline Phosphatase 71 U/L (40-110); Anion Gap 12 mmol/L (10-20); BUN (Urea Nitrogen) 25 mg/dL (9.8-20.1); Bilirubin, Total 0.4 mg/dL (0.2-1.2); Calc. Creatinine Clearance 0 mL/min (70-130); Calcium 8.9 mg/dL (7.8-10.44); Carbon Dioxide 23 mmol/L (23-31); Chloride 107 mmol/L (98-107); Estimated GFR 80; Globulin 2.7 g/dL (2.4-3.5); Glucose 134 mg/dL (83-110); Lipase 36 U/L (8-78); Potassium 3.6 mmol/L (3.5-5.1); Protein, Total 6.7 g/dL (5.8-8.1); Sodium 138 mmol/L (136-145)
[2022-07-20] MEDS ORDERED: Acetaminophen 500 MG TAB ONE (23:37)
[2022-07-21] MEDS ORDERED: Nitroglycerin 0.4 MG TAB (25 Tab Bottle) SL PRN (00:27)
[2022-07-21] MEDS ORDERED: Nitroglycerin 0.4 MG TAB 1 EACH ONE (00:31)
[2022-07-21] MEDS ORDERED: Sucralfate 1 GM/10 ML UDCUP PO SCH (00:45)
[2022-07-21] MEDS ORDERED: Lidocaine 2% Viscous Solution 10 ML, Aluminum & Magnesium Hydroxide 30 ML SSW SCH (00:45)
[2022-07-21 01:01] LABS: Hemoglobin A1c 4.9 % (4.0-6.0)
[2022-07-21 01:06] LABS: Magnesium 2.1 mg/dL (1.6-2.6)
[2022-07-21] MEDS ORDERED: Morphine 2 MG/ML VIAL SLOW IVP SCH (01:30)
[2022-07-21] MEDS ORDERED: Cyclobenzaprine 10 MG TAB PO PRN (01:41)
[2022-07-21] MEDS ORDERED: Promethazine 25 MG TAB PO PRN (01:41)
[2022-07-21] MEDS ORDERED: Gaviscon Tablet PO PRN (01:41)
[2022-07-21] MEDS ORDERED: ALPRAZolam 0.25 MG TAB PO PRN (01:41)
[2022-07-21] MEDS ORDERED: rOPINIRole HCl 1 MG TAB PO PRN (01:41)
[2022-07-21 02:14] LABS: Troponin I Less than 0.010 ng/mL (< 0.028)
[2022-07-21] MEDS: HYDROcodone/Acetaminophen 10/325 mg Tablet PO PRN ×3 (03:18→14:36)
[2022-07-21 03:50] VITALS: BMI 29.7
[2022-07-21] MEDS ORDERED: FLU VACC QS2022-23(65YR UP)/PF 240 MCG/0.7 ML SYRINGE IM ONE (04:00)
[2022-07-21] MEDS ORDERED: Metoclopramide HCl 10 MG TAB PO SCH (04:15)
[2022-07-21 05:05] LABS: Bacteria/HPF 4+ HPF (None Seen); Bilirubin Negative (Negative); Blood, Urine Negative (Negative); CAUTI Indications for Culture Dysuria,urgency,freq; Clarity Turbid (Clear); Glucose, Urine (Dipstick) Normal (Negative); Ketone, Urine Negative (Negative); Leukocyte 75 Leu/uL (Negative); Nitrite Negative (Negative); Protein, Urine (Dipstick) Negative (Neg-Trace); RBC/HPF 0-3 HPF (0-3); Specific Gravity, Urine 1.017 (1.002-1.036); Squamous Epithelial None Seen HPF (0-3); Urobilinogen Normal mg/dL (Less than 2); WBC/HPF 0-3 HPF (0-3); pH, Urine 6.5 (5.0-9.0)
[2022-07-21 05:08] LABS: Urine Culture Reflex No No
[2022-07-21 05:28] LABS: #Eosinphils 0.1 thou/uL (0.0-0.7); #Lymphocytes 1.4 thou/uL (1.20-3.40); #Monocytes 0.5 thou/uL (0.11-0.59); #Neutrophils 3.1 thou/uL (1.40-6.50); %Basophils 0.8 % (0.0-1.0); %Lymphocytes 27.6 % (21.0-51.0); %Monocytes 9.5 % (0.0-10.0); %Neutrophils 60.1 % (42.0-75.0); Mean Corpuscular HGB CONC 32.5 g/dL (32.0-36.0); Mean Corpuscular Hemoglobin 32.3 pg (27.0-31.0); Mean Corpuscular Volume 99.4 fl (78.0-98.0); Mean Platelet Volume 7.9 fL (7.4-10.4); Platelet Count 214 10x3/uL (130-400); RBC Distribution Width 12.4 % (11.5-14.5); White Blood Cell (WBC) Count 5.2 10x3/uL (4.8-10.8)
[2022-07-21 05:38] LABS: Anion Gap 11 mmol/L (10-20); BUN (Urea Nitrogen) 20 mg/dL (9.8-20.1); Calc. Creatinine Clearance 91 mL/min (70-130); Calcium 8.6 mg/dL (7.8-10.44); Carbon Dioxide 24 mmol/L (23-31); Cardiac Risk 2.4 (Less than 4.5); Chloride 109 mmol/L (98-107); Cholesterol 161 mg/dl (< 200 Desired); Estimated GFR 89; Glucose 102 mg/dL (83-110); HDL Cholesterol 67 mg/dL (>60 Neg Risk); LDL Cholesterol, Calculated 77 mg/dL; Sodium 140 mmol/L (136-145); Triglycerides 83 mg/dL (Less than 150)
[2022-07-21 05:43] LABS: Troponin I Less than 0.010 ng/mL (< 0.028)
[2022-07-21] MEDS ORDERED: Mometasone 200 MCG/Formoterol 5 MCG 120 PUFF INHALER INH SCH (06:30)
[2022-07-21 06:51] LABS: Amphetamine Not Detected (NotDetected); Barbiturates Screen Not Detected (NotDetected); Benzodiazepine Screen Not Detected (NotDetected); Cocaine Metabolite Screen Not Detected (NotDetected); Methadone Not Detected (NotDetected); Methamphetamine Not Detected (NotDetected); Opiate Screen Detected (NotDetected); Oxycodone Screen Not Detected (NotDetected); Phencyclidine (PCP) Not Detected (NotDetected); THC/Cannabinoid Screen Not Detected (NotDetected); Tricyclic Screen Not Detected (NotDetected)
[2022-07-21] MEDS ORDERED: cefTRIAXone\\ROCEPHIN 1 GM in Sodium Chloride 0.9% 100 ML IVPB SCH (08:00)
[2022-07-21] MEDS ORDERED: Lactated Ringer's 1,000 ML IV SCH (08:30)
[2022-07-21] MEDS ORDERED: Bisacodyl 5 MG TAB PO PRN (08:32)
[2022-07-21] MEDS ORDERED: Artificial Tear Sol 15 ML BOT EA EYE PRN (09:00)
[2022-07-21] MEDS ORDERED: Fluticasone Propionate Nasal Spray 16 gm Bottle NASAL SCH (09:00)
[2022-07-21] MEDS ORDERED: Amlodipine 5 MG TAB PO SCH (09:00)
[2022-07-21] MEDS ORDERED: Rosuvastatin 5 MG TAB PO SCH (09:00)
[2022-07-21 16:11] VITALS: BP 111/56; TEMP 97.5
== END 2022-07-21 17:55 | disposition home or self-care (01) ==
LOC: ERS 21:23 → 2SW 07-21 00:17
PROVIDERS: ADMIT Student in an Organized Health Care Education/Training Program; ATTEND Student in an Organized Health Care Education/Training Program
DX: R07.89 Other chest pain (principal); K21.9 Gastro-esophageal reflux disease without esophagitis; I10 Essential (primary) hypertension; I25.10 Atherosclerotic heart disease of native coronary artery without angina pectoris; J45.909 Unspecified asthma, uncomplicated; K85.90 Acute pancreatitis without necrosis or infection, unspecified; G89.29 Other chronic pain; M54.9 Dorsalgia, unspecified; N39.0 Urinary tract infection, site not specified; E78.00 Pure hypercholesterolemia, unspecified; Z79.02 Long term (current) use of antithrombotics/antiplatelets; Z79.899 Other long term (current) drug therapy; Z88.8 Allergy status to other drugs, medicaments and biological substances; Z95.5 Presence of coronary angioplasty implant and graft
CPT/HCPCS: 71045; 80048; 80053; 80061; 80306; 81001; 83036; 83690; 83735; 84443; 84484 ×3; 85025 ×2; 85379; 87077; 87086; 87186; 93005 ×2; 94640; 96372; 96374; 97116; 99285; G0378 ×2; 36415; 93010; J0696; J1650; J2272; J3490; J7120; Q0169

== ENCOUNTER 2022-09-03 13:04 | Emergency (ER) | payer MEDICARE, OTHER ==
[2022-09-03] MEDS ORDERED: fentaNYL 50 mcg/mL 1 mL Vial ONE (15:31)
[2022-09-03] MEDS ORDERED: diphenhydrAMINE 50 MG/ML VIAL ONE (15:32)
[2022-09-03] MEDS ORDERED: Metoclopramide HCl 10 MG/2 ML VIAL ONE (15:32)
[2022-09-03] MEDS ORDERED: HYDROcodone/Acetaminophen 5/325 mg Tablet ONE (15:45)
== END 2022-09-03 16:45 | disposition home or self-care (01) ==
LOC: ERS 13:04
DX: S05.11XA Contusion of eyeball and orbital tissues, right eye, initial encounter (principal); R11.2 Nausea with vomiting, unspecified; E78.00 Pure hypercholesterolemia, unspecified; I10 Essential (primary) hypertension; W18.30XA Fall on same level, unspecified, initial encounter; Z79.82 Long term (current) use of aspirin
CPT/HCPCS: 70450; 72070; 72125; 93005; J1200; J2765; J3010

== ENCOUNTER 2022-10-18 07:33 | Day surgery (SDC) | payer MEDICARE, OTHER ==
[2022-10-17 11:32] VITALS: BMI 29.8
[2022-10-18] MEDS ORDERED: Promethazine HCl 25 MG/ML VIAL ONE (09:14)
[2022-10-18] MEDS ORDERED: Lidocaine 1% PF 5 ML VIAL ONE (09:17)
[2022-10-18] MEDS ORDERED: PROPOFOL 200 MG/20 ML VIAL ONE (09:17)
== END 2022-10-18 11:15 | disposition home or self-care (01) ==
LOC: SDC 07:33
PROVIDERS: ATTEND Internal Medicine Gastroenterology
PROC: 0D758ZZ Dilation of Esophagus, Via Natural or Artificial Opening Endoscopic (ICD-10-PCS; principal; 2022-10-18)
DX: K44.9 Diaphragmatic hernia without obstruction or gangrene (principal); K21.9 Gastro-esophageal reflux disease without esophagitis; R13.10 Dysphagia, unspecified; I25.10 Atherosclerotic heart disease of native coronary artery without angina pectoris; M94.0 Chondrocostal junction syndrome [Tietze]; J45.909 Unspecified asthma, uncomplicated; I10 Essential (primary) hypertension; M19.90 Unspecified osteoarthritis, unspecified site; Z79.899 Other long term (current) drug therapy; Z79.02 Long term (current) use of antithrombotics/antiplatelets; Z90.49 Acquired absence of other specified parts of digestive tract; Z90.710 Acquired absence of both cervix and uterus; Z88.1 Allergy status to other antibiotic agents; Z88.8 Allergy status to other drugs, medicaments and biological substances
CPT/HCPCS: J2550; J2704

== ENCOUNTER 2022-11-28 10:22 | Outpatient (CLI) | payer MEDICARE, OTHER | END 2022-11-28 10:23 | disposition home or self-care (01) | LOC: RAD 10:22 | PROVIDERS: ATTEND Physician Assistant Medical | DX: K44.9 Diaphragmatic hernia without obstruction or gangrene (principal); R13.10 Dysphagia, unspecified; K22.89 Other specified disease of esophagus; Z87.19 Personal history of other diseases of the digestive system | CPT/HCPCS: 74220 ==

== ENCOUNTER 2023-02-19 13:00 | Outpatient (CLI) | payer MEDICARE, OTHER | END 2023-02-19 13:01 | disposition home or self-care (01) | LOC: SCSRAD 13:00 | PROVIDERS: ATTEND Family Medicine | DX: R05.9 Cough, unspecified (principal); R91.8 Other nonspecific abnormal finding of lung field; Z96.82 Presence of neurostimulator | CPT/HCPCS: 71046 ==

== ENCOUNTER 2023-05-26 13:42 | Emergency (ER) | payer MEDICARE ==
[2023-05-26] MEDS ORDERED: Ondansetron PF 4 MG/2 ML Vial ONE (14:19)
[2023-05-26] MEDS ORDERED: Morphine 2 MG/ML VIAL ONE (14:19)
[2023-05-26 14:32] LABS: #Basophils 0.1 thou/uL (0.0-0.2); #Monocytes 0.5 thou/uL (0.11-0.59); #Neutrophils 9.6 thou/uL (1.40-6.50); %Basophils 0.5 % (0.0-1.0); %Eosinophils 0.4 % (0.0-10.0); %Lymphocytes 8.9 % (21.0-51.0); %Monocytes 4.8 % (0.0-10.0); %Neutrophils 85.1 % (42.0-75.0); Hematocrit 38.8 % (36.0-47.0); Hemoglobin 13.1 g/dL (12.0-16.0); Mean Corpuscular HGB CONC 33.8 g/dL (32.0-36.0); Mean Corpuscular Hemoglobin 31.4 pg (27.0-31.0); Mean Platelet Volume 9.9 fL (7.4-10.4); Platelet Count 267 10x3/uL (130-400); Red Blood Cell (RBC) Count 4.17 mill/uL (4.20-5.40); White Blood Cell (WBC) Count 11.3 10x3/uL (4.8-10.8)
[2023-05-26 14:58] LABS: ALT (SGPT) 15 U/L (8-55); AST (SGOT) 17 U/L (5-34); Albumin 4.1 g/dL (3.4-4.8); Alkaline Phosphatase 93 U/L (40-110); Anion Gap 15 mmol/L (10-20); BUN (Urea Nitrogen) 16 mg/dL (9.8-20.1); Bilirubin, Total 0.5 mg/dL (0.2-1.2); Calc. Creatinine Clearance 0 mL/min (70-130); Calcium 8.9 mg/dL (7.8-10.44); Carbon Dioxide 25 mmol/L (23-31); Chloride 100 mmol/L (98-107); Estimated GFR 76; Globulin 2.7 g/dL (2.4-3.5); Glucose 160 mg/dL (83-110); Lipase 13 U/L (8-78); Potassium 3.8 mmol/L (3.5-5.1); Protein, Total 6.8 g/dL (5.8-8.1); Sodium 136 mmol/L (136-145)
[2023-05-26 15:02] LABS: Troponin I Less than 0.010 ng/mL (< 0.028)
== END 2023-05-26 16:15 | disposition home or self-care (01) ==
LOC: ERS 13:42
DX: R07.89 Other chest pain (principal); I10 Essential (primary) hypertension; I48.91 Unspecified atrial fibrillation
CPT/HCPCS: 36415; 71045; 80053; 83690; 84484; 85025; 85379; 93005; 94760; 96374; 96375; J2272; J2405

== ENCOUNTER 2023-06-21 09:37 | Outpatient (CLI) | payer MEDICARE ==
[2023-06-21] MEDS ORDERED: Magnevist 469MG/ML 20 ML VIAL ONE (13:56)
== END 2023-06-21 09:38 | disposition home or self-care (01) ==
LOC: MRI 09:37
PROVIDERS: ATTEND Physician Assistant Medical
DX: R10.13 Epigastric pain (principal); E05.90 Thyrotoxicosis, unspecified without thyrotoxic crisis or storm; R79.89 Other specified abnormal findings of blood chemistry; Z87.19 Personal history of other diseases of the digestive system
CPT/HCPCS: 74183; A9579

== ENCOUNTER 2024-02-26 15:34 | Outpatient (CLI) | payer MEDICARE | END 2024-02-26 15:35 | disposition home or self-care (01) | LOC: BICRAD 15:34 | PROVIDERS: ATTEND Family Medicine | DX: S62.607A Fracture of unspecified phalanx of left little finger, initial encounter for closed fracture (principal) ==

== ENCOUNTER 2024-03-18 09:03 | Outpatient (CLI) | payer MEDICARE ==
[2024-03-18 12:03] LABS: #Basophils 0.03 10x3/uL (0.0-0.2); %Basophils 0.5 % (0.0-1.0); %Eosinophils 1.8 % (0.0-10.0); %Lymphocytes 22.9 % (21.0-51.0); %Monocytes 10.5 % (0.0-10.0); %Neutrophils 64.1 % (42.0-75.0); Hematocrit 37.2 % (36.0-47.0); Hemoglobin 12.1 g/dL (12.0-16.0); Mean Corpuscular HGB CONC 32.5 g/dL (32.0-36.0); Mean Corpuscular Hemoglobin 30.6 pg (27.0-31.0); Mean Corpuscular Volume 94.2 fL (78.0-98.0); Platelet Count 218 10x3/uL (130-400); RBC Distribution Width 13.7 % (11.5-14.5); Red Blood Cell (RBC) Count 3.95 mill/uL (4.20-5.40)
[2024-03-18 13:07] LABS: Anion Gap 14 mmol/L (10-20); BUN (Urea Nitrogen) 17 mg/dL (9.8-20.1); Calc. Creatinine Clearance 0 mL/min (70-130); Calcium 9.3 mg/dL (7.8-10.44); Carbon Dioxide 21 mmol/L (23-31); Chloride 109 mmol/L (98-107); Estimated GFR 92; Glucose 101 mg/dL (83-110); Potassium 4.5 mmol/L (3.5-5.1); Sodium 139 mmol/L (136-145)
== END 2024-03-18 09:04 | disposition home or self-care (01) ==
LOC: LABBT 09:03
PROVIDERS: ATTEND Orthopaedic Surgery
DX: Z01.818 Encounter for other preprocedural examination (principal); M20.011 Mallet finger of right finger(s)
CPT/HCPCS: 80048; 85025; 93005; 93010

== ENCOUNTER 2024-03-20 05:41 | Day surgery (SDC) | payer MEDICARE ==
[2024-03-18 10:01] VITALS: BMI 26.0
[2024-03-20] MEDS ORDERED: Bacitracin Zinc Ointment 30 gm TUBE ONE (06:15)
[2024-03-20] MEDS ORDERED: Thrombin 5000 UNITS/5 ML VIAL ONE (06:15)
[2024-03-20] MEDS ORDERED: Bupivacaine PF 0.5% 30 ML VIAL ONE (06:15)
[2024-03-20] MEDS ORDERED: Ondansetron PF 4 MG/2 ML Vial ONE ×2 (06:34→07:45)
[2024-03-20] MEDS ORDERED: Dexamethasone 20 MG/5 ML VIAL ONE (06:34)
[2024-03-20] MEDS ORDERED: Lidocaine 1% PF 5 ML VIAL ONE (06:34)
[2024-03-20] MEDS ORDERED: fentaNYL PF 100 MCG/2 ML SYRINGE ONE (06:35)
[2024-03-20] MEDS ORDERED: PROPOFOL 20 ML ONE (06:35)
[2024-03-20] MEDS ORDERED: Scopolamine 1 mg/72 hour Patch ONE (06:46)
[2024-03-20] MEDS ORDERED: CEFAZOLIN 2 GM VIAL ONE (06:53)
[2024-03-20] MEDS ORDERED: Promethazine HCl 25 MG/ML VIAL ONE (07:21)
[2024-03-20] MEDS ORDERED: PROPOFOL 60 ML ONE (07:32)
[2024-03-20] MEDS ORDERED: PHENYLEPHRINE-NS 100 MCG/ML 10 ML SYRINGE ONE ×2 (07:38→08:08)
[2024-03-20] MEDS ORDERED: Glycopyrrolate 0.2 MG/ML 5 ML SYRINGE ONE (08:12)
[2024-03-20] MEDS ORDERED: Midazolam HCl 2 mg/2 ml Vial ONE (08:46)
[2024-03-20] MEDS ORDERED: Famotidine/PF 20 mg/2ml Vial ONE (08:48)
[2024-03-20] MEDS ORDERED: Droperidol 5 MG/2 ML VIAL ONE (09:02)
== END 2024-03-20 11:30 | disposition home or self-care (01) ==
LOC: SDC 05:41
PROVIDERS: ATTEND Orthopaedic Surgery
PROC: 0SGM0JZ Fusion of Right Metatarsal-Phalangeal Joint with Synthetic Substitute, Open Approach (ICD-10-PCS; principal; 2024-03-20)
DX: M20.011 Mallet finger of right finger(s) (principal); M15.1 Heberden's nodes (with arthropathy); I10 Essential (primary) hypertension; I25.10 Atherosclerotic heart disease of native coronary artery without angina pectoris; E78.5 Hyperlipidemia, unspecified; E03.9 Hypothyroidism, unspecified; F41.9 Anxiety disorder, unspecified; J45.909 Unspecified asthma, uncomplicated; G43.909 Migraine, unspecified, not intractable, without status migrainosus; G25.81 Restless legs syndrome; Z90.710 Acquired absence of both cervix and uterus; Z90.49 Acquired absence of other specified parts of digestive tract; Z95.5 Presence of coronary angioplasty implant and graft; Z96.611 Presence of right artificial shoulder joint; Z96.612 Presence of left artificial shoulder joint; Z88.8 Allergy status to other drugs, medicaments and biological substances; Z88.6 Allergy status to analgesic agent; Z79.02 Long term (current) use of antithrombotics/antiplatelets; Z79.82 Long term (current) use of aspirin; Z79.899 Other long term (current) drug therapy
CPT/HCPCS: 26860; 73140; J0665; J1100; J1790; J2250; J2405; J2550; J2704; J3490

== ENCOUNTER 2024-12-03 17:28 | Observation (INO) | payer MEDICARE ==
[~2024-12-03 17:28] MED LIST: Iopamidol-370 76% 500 ML MDV (1 ML CHARGE) ONE
[2024-12-03] MEDS ORDERED: Ondansetron PF 4 MG/2 ML Vial ONE (18:19)
[2024-12-03] MEDS ORDERED: Nitroglycerin 2% Ointment 1 INCH/1 GM Packet ONE (18:19)
[2024-12-03 18:53] LABS: #Basophils 0.07 10x3/uL (0.0-0.2); #Eosinophils 0.12 10x3/uL (0.0-0.7); #Monocytes 0.48 10x3/uL (0.11-0.59); #Neutrophils 4.59 10x3/uL (1.40-6.50); %Basophils 1.0 % (0.0-1.0); %Eosinophils 1.7 % (0.0-10.0); %Lymphocytes 27.4 % (21.0-51.0); %Monocytes 6.6 % (0.0-10.0); %Neutrophils 63.2 % (42.0-75.0); Hematocrit 36.6 % (36.0-47.0); Hemoglobin 12.2 g/dL (12.0-16.0); Mean Corpuscular Hemoglobin 31.4 pg (27.0-31.0); Mean Corpuscular Volume 94.3 fL (78.0-98.0); Platelet Count 227 10x3/uL (130-400); Red Blood Cell (RBC) Count 3.88 mill/uL (4.20-5.40); White Blood Cell (WBC) Count 7.26 10x3/uL (4.8-10.8)
[2024-12-03 19:11] LABS: ALT (SGPT) 33 U/L (Less than 34); AST (SGOT) 38 U/L (11-34); Albumin 4.4 g/dL (3.1-4.5); Alkaline Phosphatase 114 U/L (40-110); Anion Gap 12 mmol/L (10-20); BUN (Urea Nitrogen) 22 mg/dL (9.8-20.1); Bilirubin, Total 0.5 mg/dL (0.3-1.2); Calc. Creatinine Clearance 0 mL/min (70-130); Calcium 8.9 mg/dL (7.8-10.44); Carbon Dioxide 27 mmol/L (23-31); Chloride 106 mmol/L (98-107); Globulin 2.5 g/dL (2.4-3.5); Glucose 103 mg/dL (83-110); Potassium 3.8 mmol/L (3.5-5.1); Sodium 141 mmol/L (136-145)
[2024-12-03 19:16] LABS: Troponin I Less than 0.010 ng/mL (< 0.028)
[2024-12-03] MEDS ORDERED: diphenhydrAMINE 50 MG/ML VIAL ONE (20:44)
[2024-12-03 20:59] LABS: Bacteria/HPF None Seen HPF (None Seen); CAUTI Indications for Culture Pelvic or flank pain; Glucose, Urine (Dipstick) Normal (Negative); Leukocyte 25 Leu/uL (Negative); Protein, Urine (Dipstick) Negative (Neg-Trace); RBC/HPF 0-3 HPF (0-3); Specific Gravity, Urine 1.006 (1.002-1.036)
[2024-12-03 21:02] LABS: Urine Culture Reflex No No
[2024-12-03 22:44] LABS: Troponin I Less than 0.010 ng/mL (< 0.028)
[2024-12-03 22:52] VITALS: BMI 29.0
[2024-12-03 22:53] LABS: Free T4 (Free Thyroxine) 0.52 ng/dL (0.70-1.48)
[2024-12-03] MEDS: ALPRAZolam 0.25 MG TAB PO PRN (23:02)
[2024-12-03] MEDS: Ketorolac Tromethamine 30 MG (1 mL) VIAL IVP SCH (23:02)
[2024-12-04] MEDS: Mag-Al 1200 mg/1200 mg/30 ML UDCUP PO PRN (00:11)
[2024-12-04] MEDS: QUEtiapine 25 MG TAB PO SCH (00:12)
[2024-12-04 04:04] LABS: #Basophils 0.04 10x3/uL (0.0-0.2); #Eosinophils 0.13 10x3/uL (0.0-0.7); #Monocytes 0.60 10x3/uL (0.11-0.59); #Neutrophils 5.87 10x3/uL (1.40-6.50); %Basophils 0.5 % (0.0-1.0); %Eosinophils 1.6 % (0.0-10.0); %Lymphocytes 19.5 % (21.0-51.0); %Monocytes 7.2 % (0.0-10.0); %Neutrophils 70.8 % (42.0-75.0); Hematocrit 35.4 % (36.0-47.0); Hemoglobin 11.9 g/dL (12.0-16.0); Mean Corpuscular Hemoglobin 32.2 pg (27.0-31.0); Mean Corpuscular Volume 95.9 fL (78.0-98.0); Platelet Count 203 10x3/uL (130-400); Red Blood Cell (RBC) Count 3.69 mill/uL (4.20-5.40); White Blood Cell (WBC) Count 8.29 10x3/uL (4.8-10.8)
[2024-12-04 04:20] LABS: ALT (SGPT) 50 U/L (Less than 34); AST (SGOT) 73 U/L (11-34); Albumin 3.9 g/dL (3.1-4.5); Alkaline Phosphatase 114 U/L (40-110); Anion Gap 13 mmol/L (10-20); BUN (Urea Nitrogen) 17 mg/dL (9.8-20.1); Bilirubin, Total 0.5 mg/dL (0.3-1.2); Calc. Creatinine Clearance 92 mL/min (70-130); Calcium 8.4 mg/dL (7.8-10.44); Carbon Dioxide 26 mmol/L (23-31); Cardiac Risk 1.8 (Less than 4.5); Chloride 104 mmol/L (98-107); Cholesterol 136 mg/dl (< 200 Desired); Globulin 2.4 g/dL (2.4-3.5); Glucose 115 mg/dL (83-110); HDL Cholesterol 77 mg/dL (>60 Neg Risk); LDL Cholesterol, Calculated 48 mg/dL; Magnesium 2.2 mg/dL (1.6-2.6); Potassium 3.8 mmol/L (3.5-5.1); Sodium 139 mmol/L (136-145); Triglycerides 55 mg/dL (Less than 150)
[2024-12-04 04:24] LABS: Troponin I Less than 0.010 ng/mL (< 0.028)
[2024-12-04] MEDS: Mometasone 200 MCG/Formoterol 5 MCG 120 PUFF INHALER INH SCH (08:01)
[2024-12-04] MEDS ORDERED: Artificial Tear Ophth Sol 15 ML BOT EA EYE PRN (09:00)
[2024-12-04] MEDS: Acetaminophen 325 MG TAB PO SCH (10:52)
[2024-12-04] MEDS: Pantoprazole 40 MG DR.TAB PO SCH (10:52)
[2024-12-04] MEDS: Sucralfate 1 GM TAB PO SCH (10:53)
[2024-12-04] MEDS: Apixaban 5 MG TAB PO SCH (10:53)
[2024-12-04] MEDS: Transdermal Patch Removal TOP SCH (11:00)
[2024-12-04 15:18] VITALS: BP 97/51; TEMP 98.6
[2024-12-04] MEDS ORDERED: QUEtiapine 25 MG TAB PO SCH (21:00)
== END 2024-12-04 17:07 | disposition home or self-care (01) ==
LOC: ERS 17:28 → OBS 20:04
PROVIDERS: ADMIT Family Medicine; ATTEND Family Medicine
DX: M94.0 Chondrocostal junction syndrome [Tietze] (principal); R74.8 Abnormal levels of other serum enzymes; R42 Dizziness and giddiness; I10 Essential (primary) hypertension; I25.10 Atherosclerotic heart disease of native coronary artery without angina pectoris; I48.91 Unspecified atrial fibrillation; H55.00 Unspecified nystagmus; E78.5 Hyperlipidemia, unspecified; E03.9 Hypothyroidism, unspecified; K21.9 Gastro-esophageal reflux disease without esophagitis; K44.9 Diaphragmatic hernia without obstruction or gangrene; Z96.611 Presence of right artificial shoulder joint; Z90.49 Acquired absence of other specified parts of digestive tract; Z90.710 Acquired absence of both cervix and uterus; Z88.6 Allergy status to analgesic agent; Z88.5 Allergy status to narcotic agent; Z88.8 Allergy status to other drugs, medicaments and biological substances; Z79.01 Long term (current) use of anticoagulants; Z79.899 Other long term (current) drug therapy
CPT/HCPCS: 71045; 74177; 78452; 80053; 80061; 81001; 82550; 83735; 84439; 84481; 84484 ×3; 85025; 93005; 93017; 94640; 96374; 96375 ×2; 96376; 99285; A9502; G0378 ×2; J1200; J1885; J2270; J2405; J2785 ×2; Q9967; 36415; 84443